=== PATIENT | male | born 1980 | race Two or more races ===

== ENCOUNTER 2018-03-14 10:35 | Emergency (ER) | payer MEDICAID, OTHER ==
[~2018-03-14] VITALS: Ht 180.3 cm; Wt 107.5 kg
[2018-03-14 11:52] VITALS: BP 136/88
[2018-03-14] MEDS ORDERED: TETANUS-DIPTH-ACEL PERTUSSIS 0.5ML SYRG IM ONE (13:00)
== END 2018-03-14 13:14 | disposition home or self-care (01) ==
LOC: ER 10:40
DX: S31.25XA Open bite of penis, initial encounter (principal); W54.0XXA Bitten by dog, initial encounter; Y93.89 Activity, other specified; Y99.8 Other external cause status; Y92.89 Other specified places as the place of occurrence of the external cause
CPT/HCPCS: 90471; 90715